=== PATIENT | female | born 1950 | race Hispanic/Latino ===

== ENCOUNTER 2021-03-13 18:25 | Emergency (ER) | payer MEDICARE ==
[~2021-03-13] VITALS: Ht 154.9 cm; Wt 61.7 kg
[2021-03-14 00:36] VITALS: BP 137/77
== END 2021-03-13 21:30 | disposition home or self-care (01) ==
LOC: ER 18:52
DX: S20.212A Contusion of left front wall of thorax, initial encounter (principal); W22.09XA Striking against other stationary object, initial encounter; Y92.008 Other place in unspecified non-institutional (private) residence as the place of occurrence of the external cause; I10 Essential (primary) hypertension; E11.9 Type 2 diabetes mellitus without complications
CPT/HCPCS: 71101; 99283

== ENCOUNTER 2021-08-05 12:46 | Inpatient (IN) | payer MEDICARE ==
[~2021-08-05] VITALS: Ht 152.4 cm; Wt 62.7 kg
[2021-08-05] MEDS ORDERED: LISINOPRIL10 MG PO (13:11)
[2021-08-05] MEDS ORDERED: DICLOFENAC SODI50 MG (13:11)
[2021-08-05] MEDS ORDERED: HUMULIN R100 UNIT/2 INJ (13:11)
[2021-08-05] MEDS ORDERED: CEPHALEXIN500 MG PO (13:11)
[2021-08-05] MEDS ORDERED: Vancomycin IV 1 GM in SODIUM CHLORIDE 0.9% 250ML 250 ML IV ONE (16:45)
[2021-08-05] MEDS ORDERED: ONDANSETRON HCL INJ 2MG/ML 2ML 2 MG/ML VIAL IV PRN (16:45)
[2021-08-05] MEDS ORDERED: SODIUM CHLORIDE FLUSH 10 ML SYR INJ PRN (16:45)
[2021-08-05] MEDS: CEFTRIAXONE 1 GM in SODIUM CHLORIDE 0.9% 50ML 50 ML IV SCH (17:00)
[2021-08-05] MEDS ORDERED: SODIUM CHLORIDE 0.9% 50ML 50 ML ONE (17:09)
[2021-08-05] MEDS ORDERED: CEFTRIAXONE 1 GM VIAL ONE (17:09)
[2021-08-05] MEDS ORDERED: Vancomycin IV 1 GM VIAL ONE (17:09)
[2021-08-05] MEDS ORDERED: SODIUM CHLORIDE 0.9% 250ML 250 ML ONE (17:09)
[2021-08-05] MEDS ORDERED: PANTOPRAZOLE SO40 MG PO (18:39)
[2021-08-05] MEDS ORDERED: BENICAR5 MG PO (18:39)
[2021-08-05] MEDS ORDERED: VASCEPA1 GM (18:39)
[2021-08-05] MEDS ORDERED: ALENDRONATE SOD70 MG (18:39)
[2021-08-05] MEDS ORDERED: FARXIGA10 MG (18:39)
[2021-08-05] MEDS ORDERED: ATORVASTATIN CA20 MG PO (18:39)
[2021-08-05] MEDS ORDERED: LINZESS145 MCG (18:39)
[2021-08-05] MEDS ORDERED: TYLENOL325 M2 (18:39)
[2021-08-05] MEDS ORDERED: ASPIRIN EC81 MG PO (18:39)
[2021-08-05] MEDS ORDERED: TRULICITY1.5 MG/0.5 SQ (18:53)
[2021-08-05] MEDS ORDERED: FIASP PENF100 UNIT/1 (18:53)
[2021-08-05] MEDS ORDERED: TRESIBA FL100 UNIT/1 SQ (18:53)
[2021-08-05 19:45] VITALS: BP 156/81
[2021-08-05 19:50] VITALS: BP 156/81
[2021-08-05 20:00] VITALS: BP 156/81
[2021-08-05] MEDS ORDERED: DEXTROSE 50% SYRINGE 50 ML IV PRN (22:45)
[2021-08-05] MEDS ORDERED: Vancomycin IV 1 GM in SODIUM CHLORIDE 0.9% 250ML 250 ML IV SCH (22:45)
[2021-08-05] MEDS ORDERED: HYDRALAZINE HCL 20 MG/ML VIAL IV PRN (22:45)
[2021-08-05] MEDS ORDERED: INSULIN GLARGINE 100 UNITS/ML VIAL SQ ONE (23:00)
[2021-08-05] MEDS: TRAMADOL HCL 50 MG TAB PO PRN (23:06)
[2021-08-05] MEDS: INSULIN LISPRO 100 UNIT/1 ML 3ML VIAL SQ SCH (23:06)
[2021-08-06] VITALS (9 sets, daily range): BP systolic 119–154; BP diastolic 52–70
[2021-08-06 02:11] LABS: CLARITY,URINE SL CLOUDY (CLEAR); COLOR,URINE YELLOW (YELLOW); KETONES,URINE 1+ (NEGATIVE); LEUKOCYTE ESTERASE ,URINE NEGATIVE (NEGATIVE); NITRITE,URINE NEGATIVE (NEGATIVE); PROTEIN,URINE DIPSTICK NEGATIVE (NEGATIVE); URINE UROBILINOGEN 0.2 mg/dL (0.2 - 1)
[2021-08-06 02:21] LABS: BACTERIA,URINE FEW /HPF; EPITHELIAL CELLS,URINE FEW /LPF; RBC,URINE 0-5 /HPF (0-5); RENAL EPITHELIAL CELLS,URINE FEW; TRANSITIONAL EPI CELLS,URINE FEW; WBC,URINE (MAN) 21-50 /HPF (0-5)
[2021-08-06] MEDS: Vancomycin IV 1 GM in SODIUM CHLORIDE 0.9% 250ML 250 ML IV SCH ×2 (04:59→17:00)
[2021-08-06] MEDS: TRAMADOL HCL 50 MG TAB PO PRN ×3 (05:16→21:24)
[2021-08-06] MEDS: IBUPROFEN 600 MG TAB PO PRN (06:20)
[2021-08-06] MEDS: INSULIN LISPRO 100 UNIT/1 ML 3ML VIAL SQ SCH ×4 (07:30→21:29)
[2021-08-06 08:08] LABS: BASOPHILS # (AUTO) 0.1 (0.0-0.1); BASOPHILS % 0.9 % (0.0-1.0); EOSINOPHILS # (AUTO) 0.2 (0.0-0.4); EOSINOPHILS % 2.3 % (0.0-6.0); HEMATOCRIT 33.9 % (34.2-44.1); HEMOGLOBIN 10.9 g/dL (12.0-16.0); LYMPHOCYTES # (AUTO) 2.6 (1.0-3.2); LYMPHOCYTES % 33.1 % (18.0-39.1); MEAN CORPUSCULAR HEMOGLOBIN 30.9 pg (28-32); MEAN CORPUSCULAR HGB CONC 32.2 g/dL (31-35); MONOCYTES # (AUTO) 0.4 (0.2-0.8); MONOCYTES % 4.5 % (4.4-11.3); NEUTROPHILS # (AUTO) 4.6 (2.1-6.9); NEUTROPHILS % 58.1 % (38.7-80.0); PLATELET COUNT 275 x10e3/uL (140-360); RED BLOOD COUNT 3.53 x10e6/uL (3.6-5.1); RED CELL DISTRIBUTION WIDTH 14.6 % (11.7-14.4)
[2021-08-06 08:29] LABS: ANION GAP 13.9 mmol/L (8-16); CREATININE, SERUM 0.82 mg/dL (0.57-1.11); POTASSIUM 3.9 mmol/L (3.5-5.1)
[2021-08-06] MEDS ORDERED: Vancomycin IV 1 GM in SODIUM CHLORIDE 0.9% 250ML 250 ML IV SCH (09:00)
[2021-08-06] MEDS: CEFTRIAXONE 1 GM in SODIUM CHLORIDE 0.9% 50ML 50 ML IV SCH (09:08)
[2021-08-06] MEDS: ASPIRIN 81 MG ENTERIC COATED PO SCH (09:08)
[2021-08-06] MEDS: OLMESARTAN MEDOXOMIL 5 MG TABLET PO SCH (09:08)
[2021-08-06] MEDS: ATORVASTATIN 20 MG TAB PO SCH (21:25)
[2021-08-06] MEDS: INSULIN GLARGINE 100 UNITS/ML VIAL SQ SCH (21:29)
[2021-08-07] VITALS (8 sets, daily range): BP systolic 98–131; BP diastolic 43–59
[2021-08-07] MEDS: IBUPROFEN 600 MG TAB PO PRN ×2 (03:02→12:20)
[2021-08-07] MEDS: Vancomycin IV 1 GM in SODIUM CHLORIDE 0.9% 250ML 250 ML IV SCH (05:00)
[2021-08-07] MEDS: INSULIN LISPRO 100 UNIT/1 ML 3ML VIAL SQ SCH ×4 (07:30→21:19)
[2021-08-07] MEDS: TRAMADOL HCL 50 MG TAB PO PRN ×3 (08:05→21:34)
[2021-08-07] MEDS: ASPIRIN 81 MG ENTERIC COATED PO SCH (08:15)
[2021-08-07] MEDS: CEFTRIAXONE 1 GM in SODIUM CHLORIDE 0.9% 50ML 50 ML IV SCH (08:15)
[2021-08-07] MEDS: OLMESARTAN MEDOXOMIL 5 MG TABLET PO SCH (08:15)
[2021-08-07] MEDS: EPSOM SALT 454 GM POWD TOP SCH ×3 (08:45→21:40)
[2021-08-07] MEDS: ATORVASTATIN 20 MG TAB PO SCH (21:19)
[2021-08-07] MEDS: INSULIN GLARGINE 100 UNITS/ML VIAL SQ SCH (21:19)
[2021-08-08] VITALS (7 sets, daily range): BP systolic 121–145; BP diastolic 51–83
[2021-08-08] MEDS: Vancomycin IV 1 GM in SODIUM CHLORIDE 0.9% 250ML 250 ML IV SCH (06:13)
[2021-08-08] MEDS: TRAMADOL HCL 50 MG TAB PO PRN ×3 (07:40→21:10)
[2021-08-08] MEDS: INSULIN LISPRO 100 UNIT/1 ML 3ML VIAL SQ SCH ×4 (08:30→20:09)
[2021-08-08] MEDS: CEFTRIAXONE 1 GM in SODIUM CHLORIDE 0.9% 50ML 50 ML IV SCH (09:21)
[2021-08-08] MEDS: ASPIRIN 81 MG ENTERIC COATED PO SCH (09:24)
[2021-08-08] MEDS: OLMESARTAN MEDOXOMIL 5 MG TABLET PO SCH (09:24)
[2021-08-08] MEDS: EPSOM SALT 454 GM POWD TOP SCH ×3 (09:25→21:12)
[2021-08-08] MEDS ORDERED: ONDANSETRON HCL 4 MG ORAL DISINTEGRATING TAB PO PRN (13:15)
[2021-08-08] MEDS: IBUPROFEN 600 MG TAB PO PRN (16:36)
[2021-08-08] MEDS: INSULIN GLARGINE 100 UNITS/ML VIAL SQ SCH (20:09)
[2021-08-08] MEDS: ATORVASTATIN 20 MG TAB PO SCH (21:07)
[2021-08-09] VITALS (8 sets, daily range): BP systolic 118–150; BP diastolic 56–80
[2021-08-09] MEDS: Vancomycin IV 1 GM in SODIUM CHLORIDE 0.9% 250ML 250 ML IV SCH (06:20)
[2021-08-09] MEDS ORDERED: SODIUM CHLORIDE 0.9% 50ML 100 ML ONE (06:27)
[2021-08-09] MEDS ORDERED: SODIUM CHLORIDE 0.9% 500ML 500 ML ONE (06:28)
[2021-08-09] MEDS ORDERED: CEFTRIAXONE 1 GM VIAL ONE (08:06)
[2021-08-09] MEDS: INSULIN LISPRO 100 UNIT/1 ML 3ML VIAL SQ SCH ×4 (08:30→21:33)
[2021-08-09] MEDS: CEFTRIAXONE 1 GM in SODIUM CHLORIDE 0.9% 50ML 50 ML IV SCH (08:40)
[2021-08-09] MEDS: PANTOPRAZOLE SOD 40 MG TABEC PO SCH (08:40)
[2021-08-09] MEDS: OLMESARTAN MEDOXOMIL 5 MG TABLET PO SCH (08:41)
[2021-08-09] MEDS: ASPIRIN 81 MG ENTERIC COATED PO SCH (08:41)
[2021-08-09] MEDS: EPSOM SALT 454 GM POWD TOP SCH ×3 (08:41→20:53)
[2021-08-09] MEDS ORDERED: GADOBENATE DIMEGLUMINE 1 ML IV ONE (09:07)
[2021-08-09] MEDS: TRAMADOL HCL 50 MG TAB PO PRN (09:16)
[2021-08-09] MEDS: ATORVASTATIN 20 MG TAB PO SCH (20:51)
[2021-08-09] MEDS: IBUPROFEN 600 MG TAB PO PRN (21:02)
[2021-08-09] MEDS: INSULIN GLARGINE 100 UNITS/ML VIAL SQ SCH (21:33)
[2021-08-10] VITALS: BP 130/63
[2021-08-10 04:00] VITALS: BP 130/65
[2021-08-10] MEDS: INSULIN LISPRO 100 UNIT/1 ML 3ML VIAL SQ SCH ×2 (07:30→11:18)
[2021-08-10 07:50] VITALS: BP 148/86
[2021-08-10] MEDS: Vancomycin IV 1 GM in SODIUM CHLORIDE 0.9% 250ML 250 ML IV SCH (07:54)
[2021-08-10] MEDS: PANTOPRAZOLE SOD 40 MG TABEC PO SCH (07:54)
[2021-08-10 08:18] VITALS: BP 148/86
[2021-08-10] MEDS: ASPIRIN 81 MG ENTERIC COATED PO SCH (08:47)
[2021-08-10] MEDS: EPSOM SALT 454 GM POWD TOP SCH ×2 (08:47→15:03)
[2021-08-10] MEDS: OLMESARTAN MEDOXOMIL 5 MG TABLET PO SCH (08:47)
[2021-08-10] MEDS: CEFTRIAXONE 1 GM in SODIUM CHLORIDE 0.9% 50ML 50 ML IV SCH (08:50)
[2021-08-10] MEDS: TRAMADOL HCL 50 MG TAB PO PRN (11:31)
[2021-08-10 11:33] VITALS: BP 150/60
== END 2021-08-10 15:26 | disposition home or self-care (01) | DRG 638 ==
LOC: FSED 13:00 → ERHOLD 16:44 → MED/SURG2 19:37
PROVIDERS: ADMIT Internal Medicine; ATTEND Internal Medicine
DX: E11.622 Type 2 diabetes mellitus with other skin ulcer (principal); M86.8X4 Other osteomyelitis, hand; L98.498 Non-pressure chronic ulcer of skin of other sites with other specified severity; L03.012 Cellulitis of left finger; Z79.899 Other long term (current) drug therapy; E11.65 Type 2 diabetes mellitus with hyperglycemia; E78.5 Hyperlipidemia, unspecified; I10 Essential (primary) hypertension; Z79.4 Long term (current) use of insulin; E11.40 Type 2 diabetes mellitus with diabetic neuropathy, unspecified; Z20.822 Contact with and (suspected) exposure to COVID-19
CPT/HCPCS: 36415; 80048; 80053; 80202; 81001; 82948; 83036; 85025; 87071; 87205; 96372; 99251; 99284; J0696; J1815; J3370; J7040; J7050; U0002

== ENCOUNTER 2021-11-20 21:24 | Emergency (ER) | payer MEDICARE ==
[~2021-11-20] VITALS: Ht 152.4 cm; Wt 55.8 kg
[~2021-11-20 21:24] MED LIST: ALENDRONATE SOD70 MG; ASPIRIN EC81 MG PO; ATORVASTATIN CA20 MG PO; BENICAR5 MG PO; CEPHALEXIN500 MG PO; DICLOFENAC SODI50 MG; FARXIGA10 MG; FIASP PENF100 UNIT/1; HUMULIN R100 UNIT/2 INJ; LINZESS145 MCG; LISINOPRIL10 MG PO; PANTOPRAZOLE SO40 MG PO; TRESIBA FL100 UNIT/1 SQ; TRULICITY1.5 MG/0.5 SQ; TYLENOL325 M2; VASCEPA1 GM
[2021-11-20] MEDS ORDERED: SODIUM CHLORIDE 0.9% 1000ML 1,000 ML IV SCH (21:30)
[2021-11-20] MEDS ORDERED: ACETAMINOPHEN 325 MG TAB PO ONE (21:30)
[2021-11-20] MEDS ORDERED: CEFTRIAXONE 1 GM in SODIUM CHLORIDE 0.9% 50ML 50 ML IV ONE (21:30)
[2021-11-20 21:59] LABS: BASOPHILS # (AUTO) 0.1 (0.0-0.1); BASOPHILS % 0.7 % (0.0-1.0); EOSINOPHILS % 0.3 % (0.0-6.0); HEMATOCRIT 37.2 % (34.2-44.1); HEMOGLOBIN 12.9 g/dL (12.0-16.0); LYMPHOCYTES # (AUTO) 2.2 (1.0-3.2); LYMPHOCYTES % 20.6 % (18.0-39.1); MEAN CORPUSCULAR HEMOGLOBIN 31.8 pg (28-32); MEAN CORPUSCULAR HGB CONC 34.7 g/dL (31-35); MEAN CORPUSCULAR VOLUME 91.6 fL (81-99); MONOCYTES # (AUTO) 0.5 (0.2-0.8); MONOCYTES % 4.7 % (4.4-11.3); NEUTROPHILS # (AUTO) 7.9 (2.1-6.9); NEUTROPHILS % 73.2 % (38.7-80.0); PLATELET COUNT 260 x10e3/uL (140-360); RED BLOOD COUNT 4.06 x10e6/uL (3.6-5.1); RED CELL DISTRIBUTION WIDTH 12.3 % (11.7-14.4)
[2021-11-20 22:03] LABS: CLARITY,URINE SL CLOUDY (CLEAR); COLOR,URINE STRAW (YELLOW); KETONES,URINE 2+ (NEGATIVE); LEUKOCYTE ESTERASE ,URINE NEGATIVE (NEGATIVE); NITRITE,URINE NEGATIVE (NEGATIVE); PROTEIN,URINE DIPSTICK >=300 (NEGATIVE); URINE UROBILINOGEN 0.2 mg/dL (0.2 - 1)
[2021-11-20 22:08] LABS: BACTERIA,URINE FEW /HPF; HYALINE CASTS 0-1 (0-1); WBC,URINE (MAN) 0-5 /HPF (0-5)
[2021-11-20 22:17] LABS: ALBUMIN 3.4 g/dL (3.5-5.0); ALBUMIN/GLOBULIN RATIO 0.9 (0.8-2.0); ANION GAP 17.2 mmol/L (8-16); CALCIUM 9.4 mg/dL (8.4-10.2); CREATININE, SERUM 1.19 mg/dL (0.57-1.11); POTASSIUM 4.2 mmol/L (3.5-5.1)
[2021-11-20 22:24] LABS: CREATINE KINASE MB 0.5 ng/mL (0-5.0)
[2021-11-20] MEDS ORDERED: INSULIN REGULAR, HUMAN 100 UNIT/1 ML SQ ONE (23:00)
[2021-11-21] MEDS ORDERED: IOPAMIDOL 370 MG/ML 200 ML INFUS..BTL INJ ONE (00:53)
[2021-11-21] MEDS ORDERED: SODIUM CHLORIDE 0.9% 100 ML ONE (00:53)
[2021-11-21 04:14] VITALS: BP 133/87
== END 2021-11-21 04:18 | disposition home or self-care (01) ==
LOC: ER 22:19
DX: R53.1 Weakness (principal); R50.9 Fever, unspecified; E11.65 Type 2 diabetes mellitus with hyperglycemia; I10 Essential (primary) hypertension; Z20.822 Contact with and (suspected) exposure to COVID-19
CPT/HCPCS: 36415; 70450; 70496; 71045; 80053; 81001; 82550; 82553; 82948; 83605; 84484; 85025; 87040; 87071; 87205; 93005; 99284; J0696; J7030; J7050; Q9967; U0002